=== PATIENT | male | born 1950 | race Caucasian/White ===

== ENCOUNTER 2023-11-01 12:48 | Outpatient (REF) | payer OTHER, MEDICAID, SELFPAY ==
--- NOTE | ~2023-11-01 | XR_ITS ---
EXAMINATION: XR HIP, LEFT CLINICAL INFORMATION: Left hip pain COMPARISON: None available. TECHNIQUE: AP pelvis and 2 views of the left hip FINDINGS: Degenerative changes lower lumbar spine. Bony pelvis is intact. Mild bilateral hip joint narrowing with left spurring superolateral acetabulum. Mildly displaced left trochanteric fracture. Left femoral head remains seated in the bony acetabulum. Right hemipelvic phlebolith. XR/XR hip LT min 2V IMPRESSION: Mildly displaced left greater trochanteric fracture. Mild degenerative changes. Electronically signed by: Gwendolyn Garcia MD 11/30/2023 08:26 AM EDT
== END 2023-11-01 12:49 | disposition home or self-care (01) ==
LOC: HO.HOSX 12:48
PROVIDERS: PCP Internal Medicine; Visit Provider Physician Assistant
DX: S72.112A Displaced fracture of greater trochanter of left femur, initial encounter for closed fracture (principal); X58.XXXA Exposure to other specified factors, initial encounter; Y93.9 Activity, unspecified; Y92.9 Unspecified place or not applicable; Y99.9 Unspecified external cause status; Z91.81 History of falling
CPT/HCPCS: 73502; 99202

== ENCOUNTER 2023-11-01 12:48 | Outpatient (AMB) | payer OTHER, MEDICAID, SELFPAY ==
--- NOTE | 2023-11-01 12:57 | A.OFFVIS_ITS ---
Intake Visit Reasons: FC- fracture of greater troch of left femur Intake Note: John 73 year old male who presents today as a new patient for an evaluation of left femur fracture. Patient reports that he has a history of cancer and presented to ER due to shortness of breath. He had a scan that revealed a fracture and was referred to orthopedics. He states having a couple of falls prior to his ER visit on 10/18/23 as well as a shooting pain while he was removing his shoe. Currently his pain radiates down his leg as well as a numbness and tingling. He has a burning sensation in his feet. Allergies No Known Allergies Allergy (Unverified 11/01/23 13:17) Medication List - Last Reconciled 11/01/23 by Scar Lenz PA-C acetaminophen mg PO albuterol sulfate 90 mcg/actuation (Ventolin HFA) inhalation albuterol sulfate mg inhalation amitriptyline mg PO amlodipine mg PO diclofenac sodium mg PO losartan mg PO HPI HPI FC- fracture of greater troch of left femur: Details: 73-year-old male who presents to the office today for an evaluation of left hip injury. He reports he has a history of cancer and was seen at ER on 10/18/23 due to shortness of breath. He had a scan that revealed a fracture and was referred to our office. He states he has a couple of falls prior to his ER visit as well as a shooting pain while he was removing the shoe. He currently states he has pain in his hip that radiates down his leg as well as numbness and tingling. He also experiences a burning sensation in his feet. He does not have a history of diabetes. [facility] Social History (Updated 11/01/23 @ 13:07 by ADELAIDA Candelaria) Patient Tobacco Use Status: Never used Tobacco Current occupational status: unemployed and retired Review of Systems Const All systems reviewed & are unremarkable except as noted in HPI and below Physical Exam Const General: cooperative, healthy appearing, comfortable, no acute distress, well developed and alert Orientation/consciousness: patient oriented x3 HEENT Head: Yes normal to inspection, Yes normocephalic and Yes atraumatic Eyes General: appearance normal, both eyes and all related structures Resp Effort & Inspection: normal respiratory effort and able to speak in complete sentences Cardio Rate: regular rate Peripheral pulses: Peripheral pulses 2+ throughout GI Palpation (GI): Soft to palpation Skin Lesions: no lesions Rashes: no rashes Neuro General: patient oriented x3 Extrem Other: Left hip: Normal to inspection. No pain with ROM of the hip. No Pain along the greater trochanter. No pain with hip flexion or abduction. Negative tenderness along the SI joint, Negative SLR. NVI. Results Reviewed Results Reviewed: Xrays were obtained in the office today and personally reviewed by me of the left hip show non displaced greater trochanteric fracture of indeterminate age with interval healing. Assessment & Plan Assessment & Plan (1) Fracture of greater trochanter of left femur: Code(s): S72.112A - Displaced fracture of greater trochanter of left femur, initial encounter for closed fracture Category: Medical Qualifiers: Encounter type: initial encounter Fracture type: closed Fracture alignment: nondisplaced Qualified Code(s): S72.115A - Nondisplaced fracture of greater trochanter of left femur, initial encounter for closed fracture Plan He will continue with conservative treatment, increase activities as tolerated and take anti-inflammatories as needed. He will see me back if symptoms arise. Orders: Orders XR hip LT min 2V Today M25.552 - Pain in left hip Patient Instructions: Scribed for Scar Lenz PA-C, by Naveen Anna medical lab assistant, on 11/01/2023 at 1:15 PM EST.? I, Scar Lenz PA-C, have personally reviewed and agree with the information entered by the scribe. Coding Level of Care Code New Pt Level 3 (87800) Diagnoses Closed nondisplaced fracture of greater trochanter of left femur, initial encounter S72.115A Encounter type: initial encounter Fracture type: closed Fracture alignment: nondisplaced
== END 2023-11-01 13:51 | disposition home or self-care (01) ==
PROVIDERS: PCP Internal Medicine; Visit Provider Physician Assistant
DX: S72.115A Nondisplaced fracture of greater trochanter of left femur, initial encounter for closed fracture (principal)
CPT/HCPCS: 99203

== ENCOUNTER 2023-12-07 13:37 | Outpatient (AMB) | payer OTHER, MEDICAID, SELFPAY ==
--- NOTE | 2023-12-07 13:57 | MHC.OFFVIS ---
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 Heart rate as well as shortness of breath. He is a 73-year-old male with prior history of hypertension, tachycardia in the past has been evaluated by another cardiology office in the past 2 years ago. At that time Holter monitor showed frequent sinus tachycardia that correlated with symptoms. He is recently getting chemotherapy and developed sudden shortness of breath and was referred to the emergency room at [facility] whether workup as per him was within normal limits. Seems like he had a CT scan and other testing which showed no evidence of pulmonary embolism. He is currently being treated with losartan and amlodipine for his high blood pressure. He continues to have episodes of rapid heart rate. He said he tends to get anxious and does have symptoms of palpitation associated with it. It seems like every time this has been associated with sinus tachycardia. There were no sustained arrhythmias noted. No diagnose of atrial fibrillation. He comes here for further workup and a 2nd opinion. He denies any clear exertional chest pain but has exertional shortness of breath. He said he does not have any significant asthma and uses his inhalers only as a rescue. Does not have ongoing issues with bronchospasm. [facility] Surgical History Appendicitis Family History Father No problems noted. Mother No problems noted. Social History Patient Tobacco Use Status: Never used Tobacco Current occupational status: unemployed and retired Review of Systems Const Denies chills, Denies fatigue, Denies fever(s), Denies frequent falls, Denies weakness, Denies weight gain and Denies weight loss Eyes Denies loss of vision ENT Denies dizziness Card Denies chest pain, Denies leg edema, Denies lightheadedness, Denies palpitations, Denies dyspnea, Denies dyspnea on exertion, Denies orthopnea and Denies other (loss of consciousness) Resp Denies cough, Denies dyspnea, Denies dyspnea on exertion and Denies wheezing GI Denies hematochezia and Denies change in stool character Denies dysuria and Denies urinary frequency Musc Denies abnormal gait, Denies muscle weakness, Denies numbness, Denies radiating pain into limb and Denies tingling Skin/Breast Denies nail changes and Denies rash Neuro Denies abnormal gait, Denies dizziness, Denies frequent falls, Denies loss of vision, Denies memory loss, Denies numbness, Denies tingling and Denies weakness Psych Denies depression and Denies memory loss Endo Denies fatigue and Denies palpitations Dariel/Lymph Reports easy bruising and Reports other (anemia) Aller/Immun Denies wheezing Physical Exam Vital Signs: Last Vital Signs Pulse 114 H 12/07/23 13:58 BP 120/80 12/07/23 13:58 BMI result Body Mass Index 32.6 Const General: cooperative, comfortable, no acute distress, alert and awake Nutritional Appearance: obese Orientation/consciousness: patient oriented x3 Limitations: no limitations HEENT Head: Yes normocephalic and Yes atraumatic Neck Neck: Yes trachea midline, Yes supple and Yes no JVD Resp Effort & Inspection: normal respiratory effort Auscultation: no rales, no wheezes and diminished lung sounds Cardio Jugular venous distension: no JVD Rate: tachycardic Rhythm: regular rhythm Heart sounds: S1 normal heart sound present, S2 normal heart sound present, no click, no gallops, no murmurs and no rubs GI Auscultation: normal bowel sounds Skin General skin exam: no rashes or lesions noted Neuro General: patient oriented x3 and no focal motor deficits Extrem General: Yes no clubbing, cyanosis or edema Psych Appearance: grossly normal Assessment & Plan Assessment & Plan (1) Sinus tachycardia: Code(s): R00.0 - Tachycardia, unspecified Category: Medical Plan: Patient with sinus tachycardia which is symptomatic. On presentation EKG shows sinus tachycardia at 114 beats per minute. He is not symptomatic today. Says intermittently he does notices heart rate to be elevated. There is no clear obvious etiology found in the past. Question inappropriate sinus tachycardia. Will check for TSH and plasma metanephrine levels as well as ruled out anemia and any other electrolyte abnormality. Will obtain blood work today. I have taken the liberty to stop his amlodipine and switch him to labetalol 100 mg b.i.d. to control sinus tachycardia as well as a blood pressure. This was discussed with him. He is agreeable. Follow-up Holter monitor in 4 weeks time. Could be related to anxiety. Have discussed with him about stress mitigation strategies. Avoidance of stimulants was discussed. (2) SOB (shortness of breath) on exertion: Code(s): R06.02 - Shortness of breath Category: Medical Plan: Shortness of breath exertion which could be related to pulmonary issues. At this point time although given his multiple risk factors suggest a workup for myocardial ischemia as well as an echocardiogram to evaluate LV systolic and diastolic function. Will suggest a vasodilating myocardial perfusion imaging to evaluate for myocardial ischemia. Continue aggressive risk factor modification. Blood pressure needs to be optimally control on current therapy. Advised to monitor blood pressure at home maintain a log. Goal blood pressure less than 130/84. Clinically does appear to be having significant bronchospastic airway disease at this point time. Continue optimization for pulmonary function. Continue participate in regular physical activity. Follow up in the clinic in 2 months time, sooner p.r.n.. Thank you for allowing me to partake in his care Orders: Orders CA echo transthoracic complete 12/07/23 R00.0 - Tachycardia, unspecified TSH reflex Free T4 12/07/23 R00.0 - Tachycardia, unspecified Metanephrines, Plasma 12/07/23 R00.0 - Tachycardia, unspecified CA lexiscan stress w odessa 12/07/23 R00.0 - Tachycardia, unspecified Basic Metabolic Panel 12/07/23 R00.0 - Tachycardia, unspecified Complete Blood Count no Diff 12/07/23 R00.0 - Tachycardia, unspecified ECG 3 day holter monitor 4 Weeks R00.0 - Tachycardia, unspecified Medications: New labetalol 100 mg PO BID 60 tabs 5RF Coding Level of Care Code New Pt Level 4 (22512) Diagnoses Sinus tachycardia R00.0 SOB (shortness of breath) on exertion R06.02
[2023-12-07 13:58] VITALS: BP 120/80; PULSE 114; BMI 32.6
== END 2023-12-07 14:48 | disposition home or self-care (01) ==
PROVIDERS: PCP Internal Medicine; Visit Provider Internal Medicine Cardiovascular Disease
DX: R00.0 Tachycardia, unspecified (principal); R06.02 Shortness of breath
CPT/HCPCS: 99204

== ENCOUNTER 2023-12-07 13:37 | Outpatient (REF) | payer OTHER, MEDICAID, SELFPAY ==
[2023-12-07 15:14] LABS: Hematocrit 40.3 % (42.0-52.0); Hemoglobin 12.9 g/dl (14.0-18.0); Mean Corpuscular Hemoglobin 27.6 pg (27.0-33.0); Mean Corpuscular Volume 86.1 fL (80.0-98.0); Mean Platelet Volume 9.7 fL (9.4-12.4); Platelet Count 277 X10*3/uL (160-400); Red Blood Count 4.68 X10*6/uL (4.60-5.80); Red Cell Distribution Width 16.6 % (11.0-16.0); White Blood Count 7.2 X10*3/uL (4.8-10.8)
[2023-12-07 15:43] LABS: Anion Gap 13 (12-20); Blood Urea Nitrogen 13 mg/dL (9-16); Carbon Dioxide 27 mmol/L (22-29); Chloride 103 mmol/L (96-108); Estimated Glomerular Filt Rate > 60; Glucose Random 116 mg/dL (60-115); Potassium 4.9 mmol/L (3.3-5.1); Sodium 138 mmol/L (135-145)
[2023-12-07 16:01] LABS: TSH reflex Free T4 2.15 uIU/mL (0.32-4.0)
[2023-12-11 23:53] LABS: Metanephrine, Free 56 pg/mL (<=57); Normetanephrines, Free 240 pg/mL (<=148); Total Metanephrine, Free 296 pg/mL (<=205)
== END 2023-12-07 13:38 | disposition home or self-care (01) ==
LOC: HO.LAB 13:37
PROVIDERS: PCP Internal Medicine; Visit Provider Internal Medicine Cardiovascular Disease
DX: R00.0 Tachycardia, unspecified (principal); R06.02 Shortness of breath
CPT/HCPCS: 36415; 80048; 83835; 84443; 85027; 99202

== ENCOUNTER 2023-12-15 11:05 | Outpatient (AMB) | payer OTHER, MEDICAID, SELFPAY ==
--- NOTE | 2023-12-15 11:17 | A.OFFVIS_ITS ---
Vital Signs 12/15/23 11:38 Height 5 ft 9 in Weight 220 lb BMI 32.5 Intake Visit Reasons: Newprob-B/L knee pain/ down leg Intake Note: John 73 year old male who presents today for an evaluation of bilateral knee pain. Patient reports his knee pain has been present for years with his left knee being the worse. His pain radiates down and up his leg. He was previously s een at [facility] and [place] where cortisone and Euflexxa injections were given. His most recent injection was cortisone and this was administered about 2 years ago. He states he felt no relief with injections. He has tried and failed PT. Finds no relief with Tylenol or diclofenac. Allergies No Known Allergies Allergy (Unverified 12/15/23 11:21) HPI HPI Newprob-B/L knee pain/ down leg: Details: The patient is a 73-year-old male who presents today for bilateral knee pain. He complains of having trouble going upstairs because of the pain. He states he is not able to walk long distances as before. He denies having any [id number] pain. He had seen his general surgeon for the tachycardia and seeing Dr. Osorio for the lung cancer. He is currently undergoing chemotherapy for the lung cancer. [facility] Surgical History Appendicitis Family History Father No problems noted. Mother No problems noted. Social History Patient Tobacco Use Status: Never used Tobacco Current occupational status: unemployed and retired Review of Systems Const All systems reviewed & are unremarkable except as noted in HPI and below Physical Exam Vital Signs: BMI result Body Mass Index 32.5 Extrem Other: Bilateral knee: Skin intact, no erythema or joint effusion. mild tenderness along the medial joint line. Full ROM with crepitus. Negative Ranjan?s. No ligamentous laxity. NVI. Assessment & Plan Assessment & Plan (1) Osteoarthritis of knees, bilateral: Code(s): M17.0 - Bilateral primary osteoarthritis of knee Category: Medical Plan Discussed with the patient steroid injection, gel injections versus surgical intervention. He is currently going through cardiac workup and treatment for his lung cancer, so he is not an ideal surgical candidate at this time. He had some relief with the gel previously and would like to repeat injections. We will obtained approval and contact him once available. Scribed for Scar Lenz PA-C, by Lynn Mancuso medical cost consultant, on 12/15/2023 at 11:15 AM EDDIE. IScar PA-C, have personally reviewed and agree with the information entered by the scribe. Orders: Orders XR knee LT 3V Today M25.562 - Pain in left knee XR knee RT 3V Today M17.11 - Unilateral primary osteoarthritis, right knee Coding Level of Care Code Est Pt Level 3 (30199) Complex EM visit Add On G2211 Diagnoses Osteoarthritis of knees, bilateral M17.0
[2023-12-15 11:38] VITALS: BMI 32.5
== END 2023-12-15 15:53 | disposition home or self-care (01) ==
PROVIDERS: PCP Internal Medicine; Visit Provider Physician Assistant
DX: M17.0 Bilateral primary osteoarthritis of knee (principal)
CPT/HCPCS: 99213; G2211

== ENCOUNTER → 2023-12-15 11:05 | Outpatient (BNVA) | payer OTHER, MEDICAID, SELFPAY | PROVIDERS: PCP Internal Medicine; Visit Provider Physician Assistant | DX: M17.0 Bilateral primary osteoarthritis of knee (principal) | CPT/HCPCS: 99212 ==

== ENCOUNTER → 2023-12-29 12:45 | Outpatient (REF) | payer OTHER, MEDICAID, SELFPAY ==
--- NOTE | 2023-12-29 12:50 | HM_ITS ---
* Total monitoring time 3 days. * Average ventricular rate 100/Min. About 42% of the time, rate > 100/Min. * Rare supraventricular ectopy. * Rare ventricular ectopy. * No significant pauses or high-grade AV blocks. * No patient markers or diary events. MTDD
--- NOTE | 2023-12-29 12:50 | CA_ITS ---
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 Mildly reduced LV ejection fraction 45-50% with impaired relaxation filling pattern with mild LVH 2. Mildly dilated left atrium 3. Trivial aortic regurgitation 4. Normal RV systolic pressure 5. Mildly dilated ascending aorta at 4 cm Findings Left Ventricle Normal left ventricular cavity size. There is mildly increased left ventricular wall thickness. The left ventricular systolic function is mildly decreased. The visually estimated ejection fraction is between 45-50%. Regional wall motion abnormalities can not be excluded due to suboptimal endocardial definition. Spectral Doppler is indicative of an impaired relaxation filling pattern. Right Ventricle Normal right ventricular cavity size. Atria The left atrium is mildly dilated. Interatrial shunt cannot be excluded. The right atrium is normal in size. Aortic Valve Normal aortic valve structure and function. There is no aortic valve stenosis. There is trace (trivial) aortic valve regurgitation. Mitral Valve There is mild anterior and posterior mitral leaflet thickening. There is mild mitral annular calcification. There is trace mitral valve regurgitation. There is no mitral valve stenosis. Pulmonic Valve The pulmonic valve was not well visualized. Tricuspid Valve Likely normal tricuspid valve structure and function. There is mild tricuspid valve regurgitation. The right ventricular systolic pressure is normal. The right ventricular systolic pressure is 23 mmHg. Normal right atrial pressure. There is no evidence of pulmonary hypertension. Great Vessels The pulmonary artery was not well visualized. There is mild dilatation of the ascending aorta measuring 4.00 cm. Small plaque is seen in the sino tubular ridge. Venous The inferior vena cava is normal in size and collapses greater than 50% with inspiration. Pericardium/Pleural The pericardium was not well visualized. Prior Study Comparison No prior study available for comparison. Measurements 2D Linear Measurements IVSd: 1.28 0.6-0.9/0.6-1.0 cm LVIDd: 4.51 3.9-5.3/4.2-5.9 cm LVIDd Index: 2.14 2.4-3.2/2.2-3.1 cm/m2 LVIDs: 3.07 2.0-3.6 cm LVPWd: 1.15 0.7-1.1 cm LA Diam: 4.10 2.7-3.8/3.0-4.0 cm LAIDs Index: 1.94 1.5-2.3 cm/m2 LV Mass: 252.22 67-162/88-224 g LV Mass Index: 119.54 43-95/49-115 g/m2 LVOT Diam: 2.30 3.0+(-)1.3 cm 2D Systolic Function EF 4C: 51.50 >55% EF 2C: 45.00 >55% EF BiP: 47.80 >55% Mitral Valve MV Pk E: 0.63 MV PK A: 0.91 MV Decel Time: 187.00 E/A: 0.70 E'Lateral: 4.52 E'Medial: 3.75 E/E' Med: 16.80 E/E' Lat: 14.00 PHT: 55.00 MVA PHT: 4.00 Decel [place]: 3.51 Aortic Valve AoV Pk Hardy: 1.11 AoV Pk Grad: 5.00 LVOT LVOT Pk Hardy: 0.95 LVOT Mn Hardy: 0.59 LVOT VTI: 0.19 LVOT Pk Grad: 4.00 LVOT Mn Grad: 2.00 LVOT Diam: 2.30 LVOT Area: 4.15 Diastolic Function MV Pk E: 0.63 MV Pk A: 0.91 E/A: 0.70 E'Medial: 3.75 E/E' Med: 16.80 E' Laterial: 4.52 E/E' Lat: 14.00 Right Ventricle TAPSE (mm): 20.70 TVS' Hardy: 9.55 Tricuspid Valve TR Pk Hardy: 2.25 TR Pk Grad: 20.00 RA Press: 3.00 RVSP: 23.00 Great Vessels Aorta Sinus of Valsalva: 4.23 2.0-3.[address] Ridge: 2.74 1.7-3.4 cm Ao Asc: 4.00 2.1-3.4 cm Updated in Other Vendor System with Status of Final Carlos Jean-Baptiste MD electronically signed on 12/30/2023 9:54:16 AM with status of Final
== END ==
LOC: HO.CARD 12:45
PROVIDERS: PCP Internal Medicine; Visit Provider Internal Medicine Cardiovascular Disease
DX: R00.0 Tachycardia, unspecified (principal); I49.3 Ventricular premature depolarization
CPT/HCPCS: 93242; 93306

== ENCOUNTER → 2023-12-29 12:50 | Outpatient (BNV) | payer OTHER, MEDICAID, SELFPAY | PROVIDERS: PCP Internal Medicine; Visit Provider Internal Medicine Cardiovascular Disease | DX: I47.10 Supraventricular tachycardia, unspecified (principal) | CPT/HCPCS: 93244; 93306 ==

== ENCOUNTER 2023-12-31 09:39 | Outpatient (REF) | payer OTHER, MEDICAID, SELFPAY | END 2023-12-31 09:40 | disposition home or self-care (01) | LOC: HO.HOSX 09:39 | PROVIDERS: PCP Internal Medicine; Visit Provider Physician Assistant | DX: M17.0 Bilateral primary osteoarthritis of knee (principal); M25.562 Pain in left knee | CPT/HCPCS: 20610; 73562; J7318 ==

== ENCOUNTER 2023-12-31 09:39 | Outpatient (AMB) | payer OTHER, MEDICAID, SELFPAY ==
--- NOTE | 2023-12-31 09:46 | A.OFFVIS_ITS ---
Intake Visit Reasons: OV lt leg swelling Intake Note: Bernardo is a 73 year old male who presents today for a follow up visit of his left knee OA. Patient reports he is experiencing swelling. Pt states he does have occasional pain especially when using the stairs. Allergies labetalol Allergy (Verified 12/31/23 09:46) Swelling, dzziness Medication List - Last Reconciled 12/31/23 by Scar Lenz PA-C acetaminophen 500 mg PO PRN albuterol sulfate 90 mcg/actuation (Ventolin HFA) inhalation albuterol sulfate mg inhalation amitriptyline 50 mg PO ONCE diclofenac sodium 75 mg PO losartan 100 mg PO ONCE omeprazole 40 mg PO DAILY ondansetron HCl 4 mg PO Q8H PRN oxycodone 5 mg PO PRN verapamil 60 mg (1.5 x 40 mg) PO BID 90 days HPI HPI OV lt leg swelling: Details: 73-year-old male who returns to the office today for a follow-up of left knee. He reports he has swelling in his left leg as well as occasional pain that is aggravated with stair use. He has no other concerns today. [facility] Surgical History Appendicitis Family History Father No problems noted. Mother No problems noted. Social History Patient Tobacco Use Status: Never used Tobacco Current occupational status: unemployed and retired Review of Systems Const All systems reviewed & are unremarkable except as noted in HPI and below Physical Exam Extrem Other: Bilateral knee: Skin intact, no erythema or joint effusion. Tenderness along the medial and lateral joint line. Full ROM with crepitus. Negative Ranjan?s. No ligamentous laxity. NVI. ? Office Procedures Joint Injection/Aspiration Joint Injection/Aspiration Details: bilat durolane injection Primary Site: right knee Secondary Site: left knee Prep: site was prepped using aseptic technique, ethochloride spray was applied and injection warnings given Injected: in the joint Approach Used: anterolateral Procedure: The patient tolerated the procedure well Coding 89312 - Glenohumeral/Tronchanteric Bursa/Intraarticular Procedure code (CPT) selection complete Results Reviewed Results Reviewed: Xrays were obtained in the office today and personally reviewed by me of bilat knee show end stage oa Assessment & Plan Assessment & Plan (1) Osteoarthritis of knees, bilateral: Code(s): M17.0 - Bilateral primary osteoarthritis of knee Category: Medical Plan We discussed options today, which include Durolane gel injection. The patient did consent to move forward with the bilateral knee Durolane gel injection, which was tolerated well. I recommended rest, ice, and elevation and OTC anti- inflammatories as needed for discomfort. If symptoms persist or worsen over the next 6-8 weeks, patient will contact the office, otherwise follow-up as needed. ? Orders: Orders XR knee RT 3V Today M17.11 - Unilateral primary osteoarthritis, right knee XR knee LT 3V Today M25.562 - Pain in left knee Patient Instructions: Scribed for Scar Lenz PA-C, by Naveen Anna lpn or medical assistant, on 12/31/2023 at 9:45 AM EST.? I, Scar Lenz PA-C, have personally reviewed and agree with the information entered by the scribe. Coding Level of Care Code Procedure Only Diagnoses Osteoarthritis of knees, bilateral M17.0 CPT Codes Coding - Joint 7: 61189 - Glenohumeral/Tronchanteric Bursa/Intraarticular ([id number])
== END 2023-12-31 10:21 | disposition home or self-care (01) ==
PROVIDERS: PCP Internal Medicine; Visit Provider Physician Assistant
DX: M17.0 Bilateral primary osteoarthritis of knee (principal)
CPT/HCPCS: 20610